=== PATIENT | male | born 1955 | race Caucasian/White ===

== ENCOUNTER → 2018-06-16 | Outpatient (CLI) | payer OTHER | END | disposition home or self-care (01) | LOC: RAH 11:12 | PROVIDERS: ATTEND Internal Medicine | DX: M16.0 Bilateral primary osteoarthritis of hip (principal) | CPT/HCPCS: 73501 ==

== ENCOUNTER → 2018-07-13 | Outpatient (CLI) | payer OTHER ==
[~2018-07-13] MED LIST: ATOR40TA71 PO; CEPH500T PO; FISH1CAP49 PO; FURO20TA6 PO; HYDR25TA PO; LEVO200T5 PO; LEVO50TA4 PO; LORA10TA7 PO; MELO15TA12 PO; METF-444 PO; METO100T14 PO; MUPI22OI2 TP; RIVA20TA PO; TRIAMCINOLONE TP; VIT D3 PO
== END | disposition home or self-care (01) ==
LOC: SHCH 11:11
PROVIDERS: ATTEND Internal Medicine Cardiovascular Disease
DX: I34.0 Nonrheumatic mitral (valve) insufficiency (principal); I48.2 Chronic atrial fibrillation
CPT/HCPCS: 71045; 93306

== ENCOUNTER 2018-08-04 05:46 | Observation (INO) | payer OTHER ==
[2018-07-31 14:58] VITALS: BP 147/86
[2018-07-31 15:21] LABS: BASOPHILS % (AUTO) 0.4 % (0.0-5.0); EOSINOPHILS % (AUTO) 2.9 % (0.0-8.0); HEMATOCRIT 42.8 % (42-54); LYMPHOCYTES % (AUTO) 36.4 % (21.0-51.0); MEAN CORPUSCULAR HEMOGLOBIN 32.8 pg (27.0-33.0); MEAN CORPUSCULAR HGB CONC 33.3 g/dL (32.0-36.0); MEAN CORPUSCULAR VOLUME 98.3 fL (79-99); MONOCYTES % (AUTO) 10.9 % (3.0-13.0); NEUTROPHILS % (AUTO) 49.4 % (40.0-77.0); NUCLEATED RED BLOOD CELLS 0.1 % (0.0-0.19); PLATELET COUNT (AUTO) 219 K/uL (130-400); RED BLOOD CELL COUNT(AUTO) 4.35 MIL/uL (4.50-6.20); RED CELL DISTRIBUTION WIDTH 14.1 % (11.0-15.5); WHITE BLOOD COUNT (AUTO) 7.1 K/uL (4.8-10.8)
[2018-07-31 15:33] LABS: CREATININE 0.9 mg/dL (0.5-1.5)
[2018-07-31 15:36] LABS: INR 1.28 (0.85-1.15); PARTIAL THROMBOPLASTIN TIME 36.2 SEC (26.3-35.5); PROTHROMBIN TIME 13.4 SEC (9.6-11.6)
--- NOTE | 2018-07-31 15:50 | NUR ---
NOTE PT HAS A CYST TO LEFT FOOT, OPEN BUT IS NOT DRAINING AT THIS TIME, SLIGHTLY RED AROUND CYST. PT WENT TO SEE PRIMARY MD YESTERDAY BECAUSE HE WAS HAVING DISCOMFORT, HE WAS PRESCRIBED ABXS AND TOPICAL CREAM TO APPLY. NOTIFIED ADRIAN MULLIGAN, ORDERS TO DRAW CBC WITH ENMANUEL DIFF MORNING OF PROCURE AND WILL BE REEVALUATED MORNING OF PROCEDURE.
--- NOTE | 2018-08-03 12:06 | NUR ---
ABNORMAL LABS REPORTED ABNORMAL LABS TO BECKY ANTON . ELEVATED PT/PTT/INR . ORDERS TO REDRAW MORNING OF PROCEDURE.
[2018-08-04] VITALS (17 sets, daily range): BP systolic 110–148; BP diastolic 72–100
[~2018-08-04] VITALS: Ht 177.8 cm; Wt 151.0 kg
[2018-08-04] MEDS ORDERED: SODIUM CHLORIDE 0.9% 1000ML 1,000 ML IV ONE (06:10)
[2018-08-04 06:20] LABS: HEMATOCRIT 39.7 % (42-54); MEAN CORPUSCULAR HEMOGLOBIN 33.1 pg (27.0-33.0); MEAN CORPUSCULAR HGB CONC 33.7 g/dL (32.0-36.0); MEAN CORPUSCULAR VOLUME 98.1 fL (79-99); NUCLEATED RED BLOOD CELLS 0.1 % (0.0-0.19); PLATELET COUNT (AUTO) 202 K/uL (130-400); RED BLOOD CELL COUNT(AUTO) 4.04 MIL/uL (4.50-6.20); RED CELL DISTRIBUTION WIDTH 14.2 % (11.0-15.5); WHITE BLOOD COUNT (AUTO) 6.1 K/uL (4.8-10.8)
[2018-08-04 06:34] LABS: INR 1.09 (0.85-1.15); PARTIAL THROMBOPLASTIN TIME 28.9 SEC (26.3-35.5); PROTHROMBIN TIME 11.4 SEC (9.6-11.6)
[2018-08-04] MEDS ORDERED: VANCOMYCIN 1GM+NS 250ML 500 ML IV ONE ×2 (07:20→23:23)
[2018-08-04] MEDS ORDERED: LIDOCAINE HCL 1% MDV 50ML VIAL ONE (07:20)
[2018-08-04] MEDS ORDERED: BUPIVACAINE/PF 0.25% 50ML VIAL IJ ONE (07:20)
[2018-08-04 07:23] LABS: EOSINOPHILS % (MANUAL) 1 % (1-6); LYMPHOCYTES % (MANUAL) 27 % (22-44); MAN.DIFF COMMENT-IMPRESSION MANUAL DIFFERENTIAL; MONOCYTES % (MANUAL) 7 % (2-9); PROMYELOCYTES % 1 (0-0); SEGMENTED NEUTROPHILS % 64 % (40-70)
[2018-08-04 07:25] LABS: PLATELET MORPHOLOGY COMMENT GIANT PLTS PRESENT
[2018-08-04] MEDS ORDERED: IODIXANOL 320 MG/ML 100 ML VIAL ONE (07:56)
[2018-08-04] MEDS ORDERED: DEXTROSE 50%-WATER 50 ML DISP.SYRIN IV PRN (08:30)
[2018-08-04] MEDS ORDERED: TRIAMCINOLONE ACETONIDE TP SCH (08:30)
[2018-08-04] MEDS ORDERED: ONDANSETRON HCL 4 MG/2 ML VIAL IV PRN (08:30)
[2018-08-04] MEDS ORDERED: ACETAMINOPHEN 325 MG TAB PO PRN ×2 (08:30)
[2018-08-04] MEDS: VIT D3 2000 UNIT PO SCH (09:00)
[2018-08-04] MEDS: HYDROCHLOROTHIAZIDE 25 MG TABLET PO SCH (09:00)
[2018-08-04] MEDS: LORATADINE 10 MG TABLET PO SCH (09:00)
[2018-08-04] MEDS: MELOXICAM 7.5 MG TABLET PO SCH (09:00)
[2018-08-04] MEDS: FUROSEMIDE 20 MG TABLET PO SCH (09:00)
--- NOTE | 2018-08-04 09:00 | NUR ---
PT ARRIVED TO DAY PT, STABLE NO DISTRESS STATES NO PAIN TO INCISION SITE. DRESSING TO LUE IS HAS SMALL QUARTER SIZE AMOUNT OF OOZING TO NON- ADHESIVE PAD NO HEMATOMA, PRESSURE DRESSING IS D/I.
[2018-08-04] MEDS ORDERED: COMPOUND IV REFRIGERATED 1 EACH IVSOLN MISC PRN (14:30)
[2018-08-04] MEDS: VANCOMYCIN 1.75 GM in SODIUM CHLORIDE 0.9% 250 ML IV SCH ×2 (15:50→23:00)
[2018-08-04] MEDS ORDERED: VANCOMYCIN 1GM+NS 250ML 250 ML IV SCH (16:00)
[2018-08-04] MEDS: METFORMIN HCL 500 MG TABLET PO SCH (17:00)
--- NOTE | 2018-08-04 19:00 | NUR ---
REPORT GIVEN TO STACY COWAN FOURTH FLOOR. PT IS STABLE, NO C/O PAIN TO POST-OP SITE TO LUE. PRESSURE DRESSING INTACT, NO HEMATOMA OR ACTIVE BLEEDING. PT TRANSFERRED IN A WHEELCHAIR WITH PERSONAL BELONGINGS, CANE, MEDICATIONS, WITH AT BEDSIDE.
--- NOTE | 2018-08-04 19:10 | NUR ---
Pt arrived by wheelchair. Bedside report received by CAMRYN Calvin. Pt receiving Vanc and IVF at this moment. pt denies pain at this time. Carolineto is on hold. Ice applied to insertion site. pt aware of plan of care. will continue to monitor.
[2018-08-04] MEDS: MUPIROCIN OINTMENT 22 GM TUBE TP SCH (21:00)
[2018-08-04] MEDS ORDERED: ATORVASTATIN CALCIUM 40 MG TABLET PO SCH (21:00)
[2018-08-04] MEDS: CEPHALEXIN 500 MG CAPSULE PO SCH (21:00)
[2018-08-04] MEDS ORDERED: FISH OIL 1000 MG/CAP PO SCH (21:00)
[2018-08-04] MEDS: INSULIN HUMULIN R 100 UNIT/ML 3ML SQ SCH (21:00)
[2018-08-04] MEDS: METOPROLOL TARTRATE 50 MG TAB PO SCH (21:40)
[2018-08-05] VITALS: BP 142/88
[2018-08-05 04:00] VITALS: BP 140/87
[2018-08-05] MEDS ORDERED: PHARMACY COMMUNICATION MISC SCH (06:45)
[2018-08-05] MEDS: MUPIROCIN OINTMENT 22 GM TUBE TP SCH (07:05)
--- NOTE | 2018-08-05 07:10 | NUR ---
ASSESSMENT PT IS AAOX4 DENIES CP DENIES SOB DENIES NV NOTED LEFT UPPER CHEST DRESSING CLEAN DRY AND INTACT, LEFT ARM SLING IN PLACE, NO COMPLAINTS AT THIS TIME. CALL LIGHT WITHIN REACH.
[2018-08-05] MEDS: INSULIN HUMULIN R 100 UNIT/ML 3ML SQ SCH (07:15)
[2018-08-05 07:30] VITALS: BP 156/93
[2018-08-05] MEDS ORDERED: LEVOTHYROXINE 50 MCG TABLET PO SCH (07:30)
[2018-08-05] MEDS ORDERED: LEVOTHYROXINE 100 MCG TABLET PO SCH (07:30)
[2018-08-05] MEDS: HYDROCHLOROTHIAZIDE 25 MG TABLET PO SCH (08:08)
[2018-08-05] MEDS: CEPHALEXIN 500 MG CAPSULE PO SCH (08:08)
[2018-08-05] MEDS: METFORMIN HCL 500 MG TABLET PO SCH (08:08)
[2018-08-05] MEDS: MELOXICAM 7.5 MG TABLET PO SCH (08:08)
[2018-08-05] MEDS: FUROSEMIDE 20 MG TABLET PO SCH (08:08)
[2018-08-05] MEDS: METOPROLOL TARTRATE 50 MG TAB PO SCH (08:08)
[2018-08-05] MEDS: LORATADINE 10 MG TABLET PO SCH (08:09)
[2018-08-05] MEDS: VIT D3 2000 UNIT PO SCH (08:10)
--- NOTE | 2018-08-05 09:45 | NUR ---
MD ROUNDS DR HAMMER AND DR Terrie PRATHER [facility]
--- NOTE | 2018-08-05 10:10 | NUR ---
DISCHARGE PATIENT AND FAMILY VERBALIZE DC INSTRUCTIONS UNDERSTANDING AGREE TO TAKE MEDICATIONS ORDERED. ALL QUESTIONS ANSWERED. TELE PACK REMOVED, PATIENT HAD NO IV. ALL BELONGINGS TAKEN HOME. DOWN VIA WC WITH FAMILY AND NURSE AIDE.
== END 2018-08-05 10:23 | disposition home or self-care (01) ==
LOC: DAH 05:46 → DAHIP 05:47 → 4CH 20:19
PROVIDERS: ADMIT Internal Medicine; ATTEND Internal Medicine
DX: I48.2 Chronic atrial fibrillation (principal); E11.9 Type 2 diabetes mellitus without complications; I49.5 Sick sinus syndrome; E66.9 Obesity, unspecified; G47.30 Sleep apnea, unspecified; I11.9 Hypertensive heart disease without heart failure; Z95.0 Presence of cardiac pacemaker; Z79.899 Other long term (current) drug therapy; Z82.49 Family history of ischemic heart disease and other diseases of the circulatory system; Z80.8 Family history of malignant neoplasm of other organs or systems
CPT/HCPCS: 33207; 36415 ×2; 71046; 80048; 82948 ×5; 85025 ×2; 85610 ×2; 85730 ×2; 93005; 96365; 96366 ×2; A4606; C1786; C1898; G0378 ×29; J3370 ×4; J3490 ×2; J7030 ×3; Q9967

== ENCOUNTER → 2019-11-10 | Outpatient (CLI) | payer MEDICARE, OTHER ==
[~2019-11-10] MED LIST changes: -CEPH500T PO; +HYDR-4457 PO; -MELO15TA12 PO
== END | disposition home or self-care (01) ==
LOC: OIH 14:12
PROVIDERS: ATTEND Internal Medicine Cardiovascular Disease
DX: J81.1 Chronic pulmonary edema (principal); I51.7 Cardiomegaly; R91.1 Solitary pulmonary nodule; R91.8 Other nonspecific abnormal finding of lung field; Z95.0 Presence of cardiac pacemaker
CPT/HCPCS: 71046

== ENCOUNTER 2019-12-16 07:07 | Observation (INO) | payer MEDICARE, OTHER ==
[~2019-12-16] VITALS: Ht 177.8 cm; Wt 150.6 kg
[2019-12-16] VITALS (11 sets, daily range): BP systolic 123–156; BP diastolic 69–94
[~2019-12-16 07:07] MED LIST changes: -ATOR40TA71 PO; +CALC-1038 PO; +FISH OIL PO; -FISH1CAP49 PO; -HYDR-4457 PO; +LEVO125T95 PO; -LEVO200T5 PO; -LEVO50TA4 PO; -LORA10TA7 PO; -MUPI22OI2 TP; +POTA-79 PO; +TAMS-1 PO; -TRIAMCINOLONE TP; -VIT D3 PO
--- NOTE | 2019-12-16 07:20 | NUR ---
preop pt arrived ambulatory in no distress. pt oriented to room, call light with in reach, and pt connected to library monitor. pt has slight redness to rt lower leg and dry skin to legs and arms. pt also has dark scab like skin to left leg that he reports it has been there for yeARS. WILL CONTINUE TO MONITOR PT
[2019-12-16 07:31] LABS: BASOPHILS % (AUTO) 0.6 % (0.0-5.0); EOSINOPHILS % (AUTO) 3.3 % (0.0-8.0); HEMATOCRIT 40.2 % (42-54); LYMPHOCYTES % (AUTO) 28.2 % (21.0-51.0); MEAN CORPUSCULAR HGB CONC 32.8 g/dL (32.0-36.0); MEAN CORPUSCULAR VOLUME 97.3 fL (79-99); MONOCYTES % (AUTO) 12.2 % (3.0-13.0); NEUTROPHILS % (AUTO) 55.4 % (40.0-77.0); PLATELET COUNT (AUTO) 167 K/uL (130-400); RED BLOOD CELL COUNT(AUTO) 4.13 MIL/uL (4.50-6.20); RED CELL DISTRIBUTION WIDTH 14.6 % (11.0-15.5); WHITE BLOOD COUNT (AUTO) 6.7 K/uL (4.8-10.8)
[2019-12-16 07:39] LABS: CREATININE 0.8 mg/dL (0.5-1.5); POTASSIUM 3.7 mmol/L (3.5-5.1)
[2019-12-16 07:41] LABS: INR 1.08 (0.85-1.15); PARTIAL THROMBOPLASTIN TIME 27.4 SEC (26.3-35.5); PROTHROMBIN TIME 11.6 SEC (9.6-11.6)
[2019-12-16] MEDS ORDERED: SODIUM CHLORIDE 0.9% 1000ML 1,000 ML IV ONE (08:22)
[2019-12-16] MEDS ORDERED: SODIUM CHLORIDE 0.9% 1000ML 1,000 ML IV SCH (08:45)
[2019-12-16] MEDS ORDERED: VANCOMYCIN 1GM+NS 250ML 250 ML IV SCH (08:45)
--- NOTE | 2019-12-16 11:15 | NUR ---
re assess pt in no distress laying in bed. pt informed procedure delayed due to urgent procedures being done by dr shankar at this time. pt voiced understanding. will continue to monitor pt
--- NOTE | 2019-12-16 12:20 | NUR ---
report called prem abad rn labor employment associaterd lab technician and informed pt arrived at 830 am and has not been taken to procedure due to emergency cases. director will follow up with labor employment associate
[2019-12-16] MEDS ORDERED: IOHEXOL-350 50ML VIAL IV ONE (13:30)
[2019-12-16] MEDS ORDERED: MEPERIDINE-PF 25 MG/ML SYG ONE ×2 (13:30→14:24)
[2019-12-16] MEDS ORDERED: LIDOCAINE HCL 1% MDV 50ML VIAL ONE (13:30)
[2019-12-16] MEDS ORDERED: BUPIVACAINE/PF 0.25% 30ML VIAL IJ ONE (13:30)
[2019-12-16] MEDS ORDERED: CEFAZOLIN SODIUM 1 GM VIAL ONE (13:30)
[2019-12-16] MEDS ORDERED: MIDAZOLAM HCL 1 MG/ML 2ML VIAL ONE ×2 (13:30→14:25)
--- NOTE | 2019-12-16 13:35 | NUR ---
MATH INSTRUCTOR PT TAKEN TO MATH INSTRUCTOR VIA BED IN NO DISTRESS
[2019-12-16] MEDS ORDERED: VANCOMYCIN 1GM+NS 250ML 250 ML IV ONE ×2 (13:59→14:01)
[2019-12-16] MEDS ORDERED: ACETAMINOPHEN-CODEINE 300/30MG TAB PO PRN (16:00)
--- NOTE | 2019-12-16 16:06 | NUR ---
RECEIVED FROM ASSOCIATE ENTERTAINMENT EDITOR VIA BED ACCOMPANIED BY Marco PETERSON, RN AND Natty BUSTOS, RN. PT. AAOX3, RESP.'S EVEN AND UNLABORED. DENIES ANY C/O SOB, DENIES ANY CURRENT PAIN. LEFT UPPER CHEST PRESSURE DRSG IN PLACE, D/I. LEFT ARM WITH SLING IN PLACE. REMINDED OF LEFT ARM RESTRICTIONS, VERBALIZED UNDERSTANDING. CALL LIGHT WITHIN REACH, VERBALIZED ABILITY TO USE. BED LOW, SIDE RAILS UP X3.
--- NOTE | 2019-12-16 18:00 | NUR ---
SITTING UP IN BED WATCHING TELEVISION W/O C/O. CALL LIGHT WITHIN REACH.
--- NOTE | 2019-12-16 18:30 | NUR ---
NOTIFIED MILAGROS WALL OF ADMISSION, VERBALIZED UNDERSTANDING. WILL BE IN TO SEE PT.
[2019-12-16] MEDS ORDERED: METFORMIN HCL 500 MG TABLET PO SCH (21:00)
[2019-12-16] MEDS ORDERED: LEVOTHYROXINE 125 MCG TABLET PO SCH (21:00)
[2019-12-16] MEDS ORDERED: TAMSULOSIN HCL 0.4 MG CAP.ER.24H PO SCH (21:00)
[2019-12-16] MEDS: METOPROLOL TARTRATE 50 MG TAB PO SCH (21:21)
[2019-12-16] MEDS: FISH OIL 1000 MG/CAP PO SCH (21:21)
[2019-12-17] MEDS ORDERED: ONDANSETRON HCL 4 MG/2 ML VIAL IVP PRN (01:00)
[2019-12-17] MEDS ORDERED: MORPHINE SULFATE 2 MG/ML 1ML SYG IVP PRN (01:15)
[2019-12-17 04:00] VITALS: BP 137/89
[2019-12-17] MEDS ORDERED: LEVOTHYROXINE 125 MCG TABLET PO SCH (06:30)
[2019-12-17] MEDS: FISH OIL 1000 MG/CAP PO SCH (08:39)
[2019-12-17] MEDS: METOPROLOL TARTRATE 50 MG TAB PO SCH (08:39)
[2019-12-17 08:45] VITALS: BP 125/90
[2019-12-17] MEDS ORDERED: POTASSIUM CHLORIDE 20 MEQ ERTAB PO SCH (09:00)
[2019-12-17] MEDS ORDERED: HYDROCHLOROTHIAZIDE 25 MG TABLET PO SCH (09:00)
[2019-12-17] MEDS ORDERED: PANTOPRAZOLE 40 MG/VIAL IVP SCH (09:00)
[2019-12-17] MEDS ORDERED: CALCIUM CARBONATE 500 MG TABLET PO SCH (09:00)
[2019-12-17] MEDS ORDERED: FUROSEMIDE 20 MG TABLET PO SCH (09:00)
[2019-12-17 12:14] VITALS: BP 138/88
--- NOTE | 2019-12-17 13:00 | NUR ---
Patient discharged at this time. Discharged paperwork was understood and signed by patient. IV was D/c prior to D/C. Patient in stable condition with no c/o of cp, n/v, or SOB.
== END 2019-12-17 13:00 | disposition home or self-care (01) ==
LOC: CLH 07:07 → DAH 07:07 → DAHIP 07:08 → CLH 07:08 → 2AH 16:25 → 4AH 16:30
PROVIDERS: ADMIT Internal Medicine; ATTEND Internal Medicine
DX: T82.110A Breakdown (mechanical) of cardiac electrode, initial encounter (principal); I48.21 Permanent atrial fibrillation; E66.01 Morbid (severe) obesity due to excess calories; E03.9 Hypothyroidism, unspecified; E78.00 Pure hypercholesterolemia, unspecified; I10 Essential (primary) hypertension; M16.11 Unilateral primary osteoarthritis, right hip; I25.2 Old myocardial infarction; N40.0 Benign prostatic hyperplasia without lower urinary tract symptoms; Z96.641 Presence of right artificial hip joint; Z88.0 Allergy status to penicillin; Z90.49 Acquired absence of other specified parts of digestive tract; Y71.2 Prosthetic and other implants, materials and accessory cardiovascular devices associated with adverse incidents; Y92.89 Other specified places as the place of occurrence of the external cause
CPT/HCPCS: 33216; 36415; 71045; 80048; 82948 ×4; 85025; 85610; 85730; 96374; A4215; A4216; A4221; A4222; A4223 ×3; A4606; A4663; C1898; C9113; G0378 ×18; J2175 ×2; J2250 ×2; J3370 ×2; J3490 ×2; J7030 ×2; 99156; 99157; J0690; Q9967

== ENCOUNTER 2020-07-11 07:22 | Day surgery (SDC) | payer OTHER ==
[~2020-07-11] VITALS: Ht 177.8 cm; Wt 152.0 kg
[2020-07-11] VITALS (7 sets, daily range): BP systolic 120–165; BP diastolic 66–85
[~2020-07-11 07:22] MED LIST changes: +SODIUM CHLORIDE 0.9% 1000ML 1,000 ML IV ONE
[2020-07-11] MEDS ORDERED: PROPOFOL 10 MG/ML 20ML VIAL IV ONE (09:32)
== END 2020-07-11 10:20 | disposition home or self-care (01) ==
LOC: DAH 07:22 → ENDO 07:22
PROVIDERS: ATTEND Internal Medicine Gastroenterology
DX: Z12.11 Encounter for screening for malignant neoplasm of colon (principal); Z20.828 Contact with and (suspected) exposure to other viral communicable diseases; D12.2 Benign neoplasm of ascending colon; D12.3 Benign neoplasm of transverse colon; K57.30 Diverticulosis of large intestine without perforation or abscess without bleeding; I10 Essential (primary) hypertension; E11.9 Type 2 diabetes mellitus without complications; I48.91 Unspecified atrial fibrillation; E78.5 Hyperlipidemia, unspecified; E66.01 Morbid (severe) obesity due to excess calories; E03.9 Hypothyroidism, unspecified; Z68.42 Body mass index [BMI] 45.0-49.9, adult; Z86.010 Personal history of colon polyps; Z95.0 Presence of cardiac pacemaker; Z88.0 Allergy status to penicillin; Z79.890 Hormone replacement therapy; Z79.01 Long term (current) use of anticoagulants; Z79.899 Other long term (current) drug therapy; Z79.84 Long term (current) use of oral hypoglycemic drugs; Z80.0 Family history of malignant neoplasm of digestive organs; Z72.89 Other problems related to lifestyle
CPT/HCPCS: 45380; 45385; 82948 ×2; 93005; A4215 ×2; A4221; A4222; A4223; A4606; A4620; A4657; A4663; C9803; J2704; J7030; U0003

== ENCOUNTER → 2022-02-22 | Outpatient (CLI) | payer MEDICARE ==
[~2022-02-22] VITALS: Ht 177.8 cm; Wt 129.6 kg
[~2022-02-22] MED LIST changes: +0.9%NACL 1000ML 1,000 ML IV ONE; +ATOR40TA69 PO; +BUPIVACAINE/PF 0.25% 30ML VIAL IJ ONE; +CEFAZOLIN SODIUM 1 GM VIAL ONE; +CEFAZOLIN SODIUM 3 GM in DEXTROSE 5%-WATER 100 ML IVP ONE; +CLINDAMYCIN IVPB 900MG/50ML 50 ML IV ONE; +CYCL-309 PO; +CYCL5TAB PO; +DOCU-116 PO; +FAMOTIDINE 20MG VIAL IV ONE; +FENTANYL CITRATE PF 50 MCG/1 ML 2ML VIAL ONE; +GABA-529 PO; +GABA100C PO; +GLYCOPYRROLATE 1 MG/5 ML SYRINGE ONE; +HYDR-4060 PO; +LEVO125C4 PO; +LIDOCAINE PF 100MG/5ML (2%) SYRINGE 5ML ONE; +LORA10TA7 PO; +MELO-108 PO; +MIDAZOLAM HCL 1 MG/ML 2ML VIAL ONE; +MULT-1258 PO; +NEOSTIGMINE 5MG/5ML SYR IV ONE; +OMEG-148 PO; +PROPOFOL 10 MG/ML 20ML VIAL IV ONE; +RACEPINEPHRINE HCL 2.25% 0.5 ML NEB SOLN ONE; +ROCURONIUM 10MG/1ML SYR 10 MG/ML ML ONE; +ROPIVACAINE 0.5% 5MG/ML 30ML IJ ONE; -SODIUM CHLORIDE 0.9% 1000ML 1,000 ML IV ONE; +SUCCINYLCHOLINE 200MG/10ML SYR ONE; +TRANEXAMIC ACID 1000MG/10ML ONE; +VERA180T60 PO; +VITAMIN D3 PO
[2022-02-22 11:10] LABS: APPEARANCE,URINE CLEAR (CLEAR); BILIRUBIN,URINE NEGATIVE (NEGATIVE); COLOR,URINE YELLOW (YELLOW); GLUCOSE, URINE (UA) NEGATIVE (NEGATIVE); KETONES,URINE 5 mg/dL (NEGATIVE); LEUKOCYTE ESTERASE ,URINE NEGATIVE (NEGATIVE); NITRATE,URINE NEGATIVE (NEGATIVE); OCCULT BLOOD,URINE NEGATIVE (NEGATIVE); PROTEIN,URINE NEGATIVE (NEGATIVE); UROBILINOGEN,URINE 0.2 mg/dL (0.2-1.0)
[2022-02-22 11:16] LABS: ALBUMIN 3.7 g/dL (3.5-5.0)
[2022-02-22 11:36] LABS: CRP QUANTITATIVE < 2.00 mg/L (0.00-9.0)
[2022-02-22 11:42] LABS: INR 1.15 (0.85-1.15); PROTHROMBIN TIME 12.4 SEC (9.6-11.6)
[2022-02-22 11:43] LABS: PARTIAL THROMBOPLASTIN TIME 32.2 SEC (26.3-35.5)
[2022-02-22 11:47] LABS: RBC,URINE None Seen /HPF (0-1); WBC,URINE None Seen /HPF (0-1)
[2022-02-22 11:49] LABS: BACTERIA,URINE Rare /HPF (None Seen); SQUAMOUS EPITHELIAL CELL,UR 0-2 /HPF (0-2)
[2022-02-22 13:24] VITALS: BP 151/87
[2022-02-25] VITALS (14 sets, daily range): BP systolic 115–156; BP diastolic 56–79
== END | disposition home or self-care (01) ==
LOC: EDSTATUS 08:00 → DAH 10:00 → UNDOADMOB 02-25 06:05 → DAHIP 02-25 06:05
PROVIDERS: ATTEND Student in an Organized Health Care Education/Training Program
DX: Z01.812 Encounter for preprocedural laboratory examination (principal); M16.12 Unilateral primary osteoarthritis, left hip; G89.29 Other chronic pain; M25.552 Pain in left hip; I48.20 Chronic atrial fibrillation, unspecified; Z79.01 Long term (current) use of anticoagulants; Z79.899 Other long term (current) drug therapy; Z20.822 Contact with and (suspected) exposure to COVID-19
CPT/HCPCS: 36415; 81001; 82040; 82948; 84134; 85610; 85730; 86140; 87088; 87426; 87641; 94640; J0690; J7060

== ENCOUNTER 2022-04-15 06:46 | Observation (INO) | payer MEDICARE ==
[2022-04-12 10:20] VITALS: BP 154/79
[2022-04-12 10:39] LABS: BASOPHILS % (AUTO) 0.9 % (0.0-5.0); EOSINOPHILS % (AUTO) 2.2 % (0.0-8.0); HEMATOCRIT 40.8 % (42-54); MEAN CORPUSCULAR HEMOGLOBIN 31.4 pg (27.0-33.0); MEAN CORPUSCULAR HGB CONC 33.8 g/dL (32.0-36.0); MEAN CORPUSCULAR VOLUME 92.7 fL (79-99); NEUTROPHILS % (AUTO) 40.5 % (40.0-77.0); PLATELET COUNT (AUTO) 182 K/uL (130-400); RED CELL DISTRIBUTION WIDTH 13.7 % (11.0-15.5); WHITE BLOOD COUNT (AUTO) 5.5 K/uL (4.8-10.8)
[2022-04-12 10:56] LABS: APPEARANCE,URINE CLEAR (CLEAR); BILIRUBIN,URINE NEGATIVE (NEGATIVE); COLOR,URINE LIGHT-YELLOW (YELLOW); GLUCOSE, URINE (UA) NEGATIVE (NEGATIVE); KETONES,URINE NEGATIVE (NEGATIVE); LEUKOCYTE ESTERASE ,URINE NEGATIVE Leu/uL (NEGATIVE); NITRATE,URINE NEGATIVE (NEGATIVE); OCCULT BLOOD,URINE NEGATIVE (NEGATIVE); PH,URINE 6.5 (5.0-8.0); PROTEIN,URINE NEGATIVE (NEGATIVE); UROBILINOGEN,URINE 0.2 mg/dL (0.2-1.0)
[2022-04-12 10:58] LABS: ALBUMIN 3.7 g/dL (3.5-5.0); CREATININE 0.6 mg/dL (0.5-1.5); CRP QUANTITATIVE 2.2 mg/L (0.00-9.0); POTASSIUM 3.2 mmol/L (3.5-5.1)
[2022-04-12 10:59] LABS: INR 1.14 (0.85-1.15); PROTHROMBIN TIME 12.3 SEC (9.6-11.6)
[2022-04-12 11:00] LABS: PARTIAL THROMBOPLASTIN TIME 33.6 SEC (26.3-35.5)
[~2022-04-15] VITALS: Ht 175.3 cm; Wt 130.4 kg
[2022-04-15] VITALS (27 sets, daily range): BP systolic 135–169; BP diastolic 64–92
[~2022-04-15 06:46] MED LIST changes: -0.9%NACL 1000ML 1,000 ML IV ONE; -BUPIVACAINE/PF 0.25% 30ML VIAL IJ ONE; -CEFAZOLIN SODIUM 1 GM VIAL ONE; -CEFAZOLIN SODIUM 3 GM in DEXTROSE 5%-WATER 100 ML IVP ONE; -CLINDAMYCIN IVPB 900MG/50ML 50 ML IV ONE; -CYCL-309 PO; -CYCL5TAB PO; -DOCU-116 PO; -FAMOTIDINE 20MG VIAL IV ONE; -FENTANYL CITRATE PF 50 MCG/1 ML 2ML VIAL ONE; -GABA-529 PO; -GABA100C PO; -GLYCOPYRROLATE 1 MG/5 ML SYRINGE ONE; -HYDR-4060 PO; -LIDOCAINE PF 100MG/5ML (2%) SYRINGE 5ML ONE; -MIDAZOLAM HCL 1 MG/ML 2ML VIAL ONE; -NEOSTIGMINE 5MG/5ML SYR IV ONE; -PROPOFOL 10 MG/ML 20ML VIAL IV ONE; -RACEPINEPHRINE HCL 2.25% 0.5 ML NEB SOLN ONE; -ROCURONIUM 10MG/1ML SYR 10 MG/ML ML ONE; -ROPIVACAINE 0.5% 5MG/ML 30ML IJ ONE; -SUCCINYLCHOLINE 200MG/10ML SYR ONE; -TRANEXAMIC ACID 1000MG/10ML ONE
[2022-04-15] MEDS ORDERED: 0.9%NACL 1000ML 1,000 ML IV ONE (08:29)
[2022-04-15] MEDS ORDERED: CLINDAMYCIN IVPB 900MG/50ML 50 ML IV ONE ×2 (08:29→19:49)
[2022-04-15] MEDS ORDERED: LIDOCAINE PF 100MG/5ML (2%) SYRINGE 5ML ONE (10:20)
[2022-04-15] MEDS ORDERED: SUCCINYLCHOLINE CHLORIDE 20 MG/ML 10 ML VIAL ONE (10:20)
[2022-04-15] MEDS ORDERED: SUCCINYLCHOLINE 200MG/10ML SYR ONE (10:21)
[2022-04-15] MEDS ORDERED: DEXAMETHASONE SOD PHOSPHATE 10MG/ML 1ML VIAL ONE (10:22)
[2022-04-15] MEDS ORDERED: GLYCOPYRROLATE 1 MG/5 ML SYRINGE ONE (10:22)
[2022-04-15] MEDS ORDERED: MIDAZOLAM HCL 1 MG/ML 2ML VIAL ONE (10:22)
[2022-04-15] MEDS ORDERED: NEOSTIGMINE 5MG/5ML SYR IV ONE (10:22)
[2022-04-15] MEDS ORDERED: PROPOFOL 10 MG/ML 20ML VIAL IV ONE ×2 (10:22→10:49)
[2022-04-15] MEDS ORDERED: ONDANSETRON 4MG INJ ONE ×3 (10:22→15:11)
[2022-04-15] MEDS ORDERED: ROCURONIUM 10MG/1ML SYR 10 MG/ML ML ONE ×2 (10:23→10:56)
[2022-04-15] MEDS ORDERED: FENTANYL CITRATE PF 50 MCG/1 ML 2ML VIAL ONE ×2 (10:23→13:09)
[2022-04-15] MEDS ORDERED: ROPIVACAINE 0.5% 5MG/ML 30ML IJ ONE (10:26)
[2022-04-15] MEDS ORDERED: TRANEXAMIC ACID 1000MG/10ML ONE (11:34)
[2022-04-15] MEDS ORDERED: TRANEXAMIC ACID 1000MG/10ML IV ONE (14:02)
[2022-04-15] MEDS ORDERED: MEPERIDINE-PF 25 MG/ML SYG ONE (15:11)
[2022-04-15] MEDS ORDERED: KETOROLAC 15MG/ML VIAL (15MG/ML) ONE (15:11)
[2022-04-15] MEDS ORDERED: ONDANSETRON 4MG INJ IVP PRN (16:00)
[2022-04-15] MEDS ORDERED: FERROUS FUMARATE 324 MG TABLET PO PRN (16:00)
[2022-04-15] MEDS ORDERED: POTASSIUM CHLORIDE 10% ELIXIR 20 MEQ/15 ML UDCUP PO PRN (16:00)
[2022-04-15] MEDS ORDERED: LIDOCAINE HCL-MPF 1% 2ML VIAL IV PRN (16:00)
[2022-04-15] MEDS ORDERED: DiphenhydrAMINE HCL 50 MG/ML VIAL IVP PRN (16:00)
[2022-04-15] MEDS ORDERED: HYDROCODONE/ACETAMINOPHEN 5/325 MG TAB PO PRN (16:00)
[2022-04-15] MEDS ORDERED: POTASSIUM CHLORIDE 20MEQ/100ML 100 ML IV PRN (16:00)
[2022-04-15] MEDS: KETOROLAC 15MG/ML VIAL (15MG/ML) IV SCH ×2 (16:00→20:14)
[2022-04-15] MEDS ORDERED: CALCIUM CARB 500MG PO PRN (16:00)
[2022-04-15] MEDS ORDERED: CYCLOBENZAPRINE HCL 10 MG TABLET PO PRN (16:00)
[2022-04-15] MEDS ORDERED: 0.9%NACL 1000ML 1,000 ML IV SCH (16:00)
[2022-04-15] MEDS: INSULIN HUMULIN R 100 UNIT/ML 3ML SQ SCH ×2 (16:30→20:32)
[2022-04-15] MEDS ORDERED: MELOXICAM 7.5 MG TABLET PO PRN (19:30)
[2022-04-15] MEDS ORDERED: GABAPENTIN 100 MG CAPSULE ONE (19:40)
[2022-04-15] MEDS ORDERED: LORATADINE 10 MG TABLET ONE (19:41)
[2022-04-15] MEDS ORDERED: ATORVASTATIN 40 MG TABLET ONE (19:41)
[2022-04-15] MEDS: GABAPENTIN 100 MG CAPSULE PO SCH (20:12)
[2022-04-15] MEDS: FISH OIL 1000 MG/CAP PO SCH (20:12)
[2022-04-15] MEDS: KCL 20 MEQ ERTAB PO PRN ×2 (20:13→21:51)
[2022-04-15] MEDS: DOCUSATE SODIUM 100 MG CAP PO SCH (20:13)
[2022-04-15] MEDS: METOPROLOL TARTRATE 50 MG TAB PO SCH (20:13)
[2022-04-15] MEDS: CLINDAMYCIN IVPB 900MG/50ML 50 ML IV SCH (20:14)
[2022-04-15] MEDS: HOME MEDICATION 1 EACH PO SCH (20:15)
[2022-04-15] MEDS: KCL 20 MEQ ERTAB PO SCH (20:15)
[2022-04-15] MEDS ORDERED: LORATADINE 10 MG TABLET PO SCH (21:00)
[2022-04-15] MEDS ORDERED: ATORVASTATIN 40 MG TABLET PO SCH (21:00)
[2022-04-16] VITALS: BP 136/70
[2022-04-16] MEDS: CLINDAMYCIN IVPB 900MG/50ML 50 ML IV SCH (03:32)
[2022-04-16] MEDS: KETOROLAC 15MG/ML VIAL (15MG/ML) IV SCH (03:32)
[2022-04-16 04:00] VITALS: BP 131/75
[2022-04-16] MEDS ORDERED: LEVOTHYROXINE 125 MCG TABLET ONE (04:24)
[2022-04-16 04:54] LABS: HEMATOCRIT 29.4 % (42-54); MEAN CORPUSCULAR HEMOGLOBIN 31.6 pg (27.0-33.0); MEAN CORPUSCULAR HGB CONC 33.3 g/dL (32.0-36.0); MEAN CORPUSCULAR VOLUME 94.8 fL (79-99); RED BLOOD CELL COUNT(AUTO) 3.1 MIL/uL (4.50-6.20); RED CELL DISTRIBUTION WIDTH 13.7 % (11.0-15.5); WHITE BLOOD COUNT (AUTO) 10.9 K/uL (4.8-10.8)
[2022-04-16 05:09] LABS: CREATININE 0.7 mg/dL (0.5-1.5); POTASSIUM 3.9 mmol/L (3.5-5.1)
[2022-04-16] MEDS: INSULIN HUMULIN R 100 UNIT/ML 3ML SQ SCH ×3 (06:11→16:30)
[2022-04-16] MEDS: HYDROCODONE/ACETAMINOPHEN 5/325 MG TAB PO PRN ×3 (06:12→18:39)
[2022-04-16 07:30] VITALS: BP 126/78
[2022-04-16] MEDS ORDERED: LEVOTHYROXINE 125 MCG TABLET PO SCH (07:30)
[2022-04-16] MEDS ORDERED: METFORMIN HCL 500 MG TAB.SR.24H PO SCH (08:00)
[2022-04-16] MEDS: METOPROLOL TARTRATE 50 MG TAB PO SCH (08:12)
[2022-04-16] MEDS: GABAPENTIN 100 MG CAPSULE PO SCH ×2 (08:12→13:54)
[2022-04-16] MEDS: DOCUSATE SODIUM 100 MG CAP PO SCH (08:13)
[2022-04-16] MEDS: FISH OIL 1000 MG/CAP PO SCH (08:13)
[2022-04-16] MEDS: KCL 20 MEQ ERTAB PO SCH (08:13)
[2022-04-16] MEDS: HOME MEDICATION 1 EACH PO SCH (08:14)
[2022-04-16] MEDS ORDERED: ASPIRIN 325MG TAB PO SCH (09:00)
[2022-04-16] MEDS ORDERED: FUROSEMIDE 20 MG TABLET PO SCH (09:00)
[2022-04-16] MEDS ORDERED: HYDROCHLOROTHIAZIDE 25 MG TABLET PO SCH (09:00)
[2022-04-16] MEDS ORDERED: VERAPAMIL HCL 180 MG PO SCH (09:00)
[2022-04-16] MEDS ORDERED: MULTIVITAMIN WITH MINERALS TABLET PO SCH (09:00)
[2022-04-16] MEDS ORDERED: POLYETHYLENE GLYCOL 3350 17 GM POWD.PACK PO SCH (09:00)
[2022-04-16 11:30] VITALS: BP 132/78
[2022-04-16 16:00] VITALS: BP 128/71
[2022-04-16] MEDS ORDERED: HYDR-4060 PO ×4 (16:07→18:04)
[2022-04-16] MEDS ORDERED: GABA100C PO ×2 (16:07)
[2022-04-16] MEDS ORDERED: CYCL-309 PO ×2 (16:07)
[2022-04-16] MEDS ORDERED: DOCU-116 PO ×4 (16:07→18:04)
[2022-04-16] MEDS ORDERED: CYCL5TAB PO ×2 (18:04)
[2022-04-16] MEDS ORDERED: GABA-529 PO ×2 (18:04)
[2022-04-18] MEDS ORDERED: BISACODYL 10 MG SUPP.RECT RC PRN (16:00)
== END 2022-04-16 20:15 | disposition home health service (06) ==
LOC: DAH 06:46 → SUH 06:46 → INTOOBSV 06:47 → DAHIP 06:47 → SUH 06:47 → 4DH 16:40
PROVIDERS: ADMIT Student in an Organized Health Care Education/Training Program; ATTEND Student in an Organized Health Care Education/Training Program
DX: M16.12 Unilateral primary osteoarthritis, left hip (principal); Z20.822 Contact with and (suspected) exposure to COVID-19; M25.552 Pain in left hip; G89.29 Other chronic pain; D64.9 Anemia, unspecified; Z79.899 Other long term (current) drug therapy; Z98.890 Other specified postprocedural states
CPT/HCPCS: 82040; 80048 ×2; 85025; 85610; 85730; 87088; 84134; 86140; 87426; 81003; 36415 ×2; 93005; 87641; 27130; 96365; 96366 ×3; 96375; 76942; 64450; 82948 ×6; 73502; 73503; 97039 ×2; 96376; 85027; 97161; 97116 ×2; 97530 ×2; J7030 ×3; C1776; J3010 ×2; J3490 ×6; J0330 ×2; J1100; J2710; J2001; J2250; J2704 ×2; J2405 ×3; J2175; J2795; J1885 ×3; A4649 ×3; G0168; A4930; A6255; A5120; A4215; A4223; A4222; A4221; A4663; G0378 ×2; G0379

== ENCOUNTER → 2022-10-26 | Outpatient (CLI) | payer OTHER ==
[~2022-10-26] MED LIST changes: -CALC-1038 PO; +CYCL5TAB PO; +DOCU-116 PO; -FISH OIL PO; +GABA-529 PO; +HYDR-4060 PO; -LEVO125T95 PO; -MELO-108 PO; -TAMS-1 PO
== END | disposition home or self-care (01) ==
LOC: OIH 14:37
PROVIDERS: ATTEND Internal Medicine Cardiovascular Disease
DX: Z13.6 Encounter for screening for cardiovascular disorders (principal); R93.1 Abnormal findings on diagnostic imaging of heart and coronary circulation; J98.4 Other disorders of lung
CPT/HCPCS: 75571

== ENCOUNTER → 2022-11-06 | Outpatient (CLI) | payer MEDICARE | END | disposition home or self-care (01) | LOC: SHCH 13:17 | PROVIDERS: ATTEND Internal Medicine Cardiovascular Disease | DX: I51.7 Cardiomegaly (principal); R01.1 Cardiac murmur, unspecified | CPT/HCPCS: 93306 ==

== ENCOUNTER → 2022-11-25 | Outpatient (CLI) | payer MEDICARE ==
[~2022-11-25] MED LIST changes: +REGADENOSON 0.4 MG/5 ML PF SYG IVP ONE
== END | disposition home or self-care (01) ==
LOC: SHCH 09:16
PROVIDERS: ATTEND Internal Medicine Cardiovascular Disease
DX: I25.119 Atherosclerotic heart disease of native coronary artery with unspecified angina pectoris (principal); Z95.0 Presence of cardiac pacemaker
CPT/HCPCS: 78452; 96374; 93017; J2785; A9500 ×2

== ENCOUNTER 2023-06-11 15:26 | Emergency (ER) | payer OTHER, MEDICARE ==
[~2023-06-11] VITALS: Ht 177.8 cm; Wt 129.3 kg
[~2023-06-11 15:26] MED LIST changes: +POTA-364 PO; -POTA-79 PO; -REGADENOSON 0.4 MG/5 ML PF SYG IVP ONE
[2023-06-11 19:02] VITALS: BP 126/70; PULSE 64; RESP 19; O2SAT 98
== END 2023-06-11 20:24 | disposition home or self-care (01) ==
LOC: EDH 15:26
DX: S20.212A Contusion of left front wall of thorax, initial encounter (principal); S90.112A Contusion of left great toe without damage to nail, initial encounter; I10 Essential (primary) hypertension; E11.9 Type 2 diabetes mellitus without complications; E78.00 Pure hypercholesterolemia, unspecified; I48.91 Unspecified atrial fibrillation; Z79.84 Long term (current) use of oral hypoglycemic drugs; Z79.899 Other long term (current) drug therapy; Z90.49 Acquired absence of other specified parts of digestive tract; Z98.890 Other specified postprocedural states; X58.XXXA Exposure to other specified factors, initial encounter; Y93.89 Activity, other specified; Y92.89 Other specified places as the place of occurrence of the external cause; Y99.8 Other external cause status
CPT/HCPCS: 71101; 73630

== ENCOUNTER 2024-05-16 10:12 | Emergency (ER) | payer OTHER, MEDICARE ==
[~2024-05-16] VITALS: Ht 167.6 cm; Wt 95.3 kg
[2024-05-16 10:16] VITALS: BP 124/74; PULSE 66; RESP 18; TEMP 98.4; O2SAT 99
[2024-05-16] MEDS: morPHINE 2 MG SYG IVP ONE (11:03)
[2024-05-16] MEDS: ondanSETRON 4MG INJ IVP ONE (11:03)
[2024-05-16] MEDS: CYCLOBENZAPRINE HCL 10 MG TABLET PO ONE (11:03)
[2024-05-16] MEDS: dexaMETHasone SOD PHOSPHATE 4 MG/ML 1ML VIAL IVP ONE (11:03)
[2024-05-16] MEDS: ketOROlac 30MG VIAL (30MG/ML) IVP ONE (11:03)
[2024-05-16] MEDS ORDERED: CYCL-309 PO (11:40)
[2024-05-16] MEDS ORDERED: IBUP-2077 PO (11:40)
== END 2024-05-16 12:15 | disposition home or self-care (01) ==
LOC: EDH 10:12
DX: S29.012A Strain of muscle and tendon of back wall of thorax, initial encounter (principal); S39.012A Strain of muscle, fascia and tendon of lower back, initial encounter; M47.898 Other spondylosis, sacral and sacrococcygeal region; E11.9 Type 2 diabetes mellitus without complications; E78.00 Pure hypercholesterolemia, unspecified; I10 Essential (primary) hypertension; Z79.01 Long term (current) use of anticoagulants; Z79.84 Long term (current) use of oral hypoglycemic drugs; Z79.899 Other long term (current) drug therapy; Z88.0 Allergy status to penicillin; Z95.810 Presence of automatic (implantable) cardiac defibrillator; Z96.643 Presence of artificial hip joint, bilateral; W18.39XA Other fall on same level, initial encounter; Y93.89 Activity, other specified; Y92.89 Other specified places as the place of occurrence of the external cause; Y99.8 Other external cause status
CPT/HCPCS: 99284; 96374; 96375; 72100; 72070; J1100; J2270; J2405; J1885

== ENCOUNTER 2024-09-23 14:11 | Emergency (ER) | payer OTHER, MEDICARE ==
[~2024-09-23] VITALS: Ht 175.3 cm; Wt 127.0 kg
[~2024-09-23 14:11] MED LIST changes: +CYCL-309 PO; -CYCL5TAB PO; +CYCL5TAB3 PO; +IBUP-2077 PO
--- NOTE | 2024-09-23 14:49 | NUR ---
PT CAME BACK FROM CT
--- NOTE | 2024-09-23 15:11 | HMCIMG ---
CT HEAD/BRAIN W/O CONTRAST HISTORY: Trauma COMPARISON: None TECHNIQUE: Multiple sequential axial images of the head were obtained from the base of the skull through vertex. Patient was not given contrast through intravenous route. FINDINGS: The ventricles and extraventricular CSF spaces are dilated consistent with cerebral atrophy. Nonspecific white matter changes seen. Left periorbital soft tissue swelling/hematoma is seen. There is no midline shift, mass effect or herniation. No acute intracranial bleed is seen. Visualized portion of the paranasal sinuses are grossly within normal limits. IMPRESSION: 1. No acute intracranial bleed is seen. 2. Atrophy with white matter changes. CT was performed with one or more following dose reduction techniques: automated exposure control, adjustment of the mA and kv according to patient's size, or use of a iterative reconstruction technique.
--- NOTE | 2024-09-23 15:13 | HMCIMG ---
CT CERVICAL SPINE W/O CONTRAST HISTORY: Trauma COMPARISON: None TECHNIQUE: Multiple sequential axial images of the cervical spine were obtained including post processing sagittal and coronal reconstruction images. Patient was not given contrast through intravenous route. FINDINGS: There is straightening of normal lordotic cervical curvature which may be related to muscle spasm or positioning. There is no loss of vertebral height. Evaluation for disc and cord pathology is limited with CT study. No evidence of fracture or dislocation is seen. There are degenerative changes with cervical spine spondylosis. Disc space narrowing are seen at C5-6 and C6-7 levels. IMPRESSION: 1. No fracture is seen. DJD with cervical spine spondylosis. CT was performed with one or more following dose reduction techniques: automated exposure control, adjustment of the mA and kv according to patient's size, or use of a iterative reconstruction technique.
--- NOTE | 2024-09-23 15:15 | HMCIMG ---
CT MAXILLOFACIAL W/O CONTRAST HISTORY: Trauma COMPARISON: None TECHNIQUE: Multiple sequential high-resolution axial images of the paranasal sinuses were obtained. Postprocessing sagittal and coronal reconstruction images were also obtained. Patient was not given contrast through intravenous route. FINDINGS: Nasal septum is deviated towards right. There is mild mucoperiosteal thickening involving the bilateral ethmoid and maxillary sinuses. The infundibula are patent bilaterally. No acute displaced fracture is seen. There is no evidence of air-fluid level in the paranasal sinuses. Parapharyngeal fat planes are preserved bilaterally. There is left periorbital soft tissue swelling. IMPRESSION: 1. No acute displaced fracture is seen. Left periorbital soft tissue swelling. CT was performed with one or more following dose reduction techniques: automated exposure control, adjustment of the mA and kv according to patient's size, or use of a iterative reconstruction technique.
--- NOTE | 2024-09-23 15:40 | ERN ---
General Chief Complaint: Other Problems Stated Complaint: MECHNICAL FALL History of Present Illness Initial Comments 69-year-old male presents from home for face injury and a fall. Patient reports she had a mechanical trip and fall either yesterday or the day before. He does take Xarelto. He has a medical history of diabetes high cholesterol heart disease and hypertension. He reports he had his head. He was some bruising to the left side of the face and a black eye on the left. He denies loss of consciousness. No confusion. No vomiting. Denies any other injuries. Allergies: Coded Allergies: Penicillins (Unverified Allergy, Intermediate, HIVES, 07/31/18) Home Meds Active Scripts Ibuprofen (Ibuprofen 800 mg Tab) 800 Mg Tab, 800 MG PO Q8H PRN for fever or pain, #30 TAB 0 Refills Prov:JACQUES HARRISON NP 05/16/24 Cyclobenzaprine HCl (Cyclobenzaprine HCl) 10 Mg Tablet, 1 TAB PO TID for muscle spasms for 10 Days, #30 TAB 0 Refills Prov:JACQUES HARRISON NP 05/16/24 Cyclobenzaprine HCl (Cyclobenzaprine HCl) 5 Mg Tablet, 5 MG PO q8hprn PRN for pain/spasm for 30 Days, #90 TAB 0 Refills Prov:SIMRAN CONNORS MD 04/16/22 Docusate Sodium (Colace) 100 Mg Capsule, 100 MG PO BID for 30 Days, #60 CAP 0 Refills Prov:SIMRAN CONNORS MD 04/16/22 Gabapentin (Gabapentin) 100 Mg Capsule, 100 MG PO TID for 30 Days, #90 CAP 0 Refills Prov:SIMRAN CONNORS MD 04/16/22 Hydrocodone/Acetaminophen (Hydrocodon-Acetaminophen 5-325) 1 Each Tablet, 1-2 EACH PO Q4HPRN PRN for PAIN for 7 Days, #56 TAB 0 Refills Prov:SIMRAN CONNORS MD 04/16/22 Reported Medications Loratadine (Loratadine) 10 Mg Tablet, 10 MG PO HS, TAB 02/22/22 Multivits-Min/FA/Lycopene/Lut (Centrum Silver Tablet) 1 Each Tablet, 1 EACH PO DAILY, TAB 02/22/22 Atorvastatin Calcium (LIPITOR) 40 Mg Tablet, 40 MG PO HS, TAB 02/22/22 [Vitamin D3] No Conflict Check, 1000 UNITS PO BID 02/22/22 Verapamil HCl (Verapamil ER) 180 Mg Tablet.er, 180 MG PO DAILY, TAB 02/22/22 Levothyroxine Sodium (Levothyroxine) 125 Mcg Capsule, 125 MCG PO ACBKFST, CAP 02/22/22 [place]-3S/Dha/Epa/Fish Oil (Fish Oil 1,000 mg Softgel) 1 Each Capsule, 1 EACH PO BID, CAP 02/22/22 Potassium Chloride (Potassium Chloride) 20 Meq Tablet.er, 20 MEQ PO BID, TAB 12/15/19 Metformin HCl (Metformin HCl) 500 Mg Tablet, 250 MG PO DAILY, TAB 07/31/18 Furosemide (Lasix 20Mg Tab) 20 Mg Tablet, 20 TAB PO DAILY, TAB 07/31/18 Hydrochlorothiazide (Hydrochlorothiazide) 25 Mg Tablet, 25 MG PO DAILY, TAB 07/31/18 Metoprolol Tartrate (Metoprolol Tartrate) 100 Mg Tablet, 150 MG PO BID, TAB 07/31/18 Rivaroxaban (Xarelto) 20 Mg Tablet, 20 MG PO DAILY, TAB 07/31/18 Past Medical History Past Medical History: Diabetes-Type II, High Cholesterol, Heart Disease, Hypertension Medical History Other: ON BLOOD THINNERS Past Surgical History: Pacer/AICD, Other Surgical History Other: BILATERAL HIP REPLACEMENT ROS Dictation CONSTITUTIONAL: No chills, no fever, no weakness, no diaphoresis, no malaise. HEAD/FACE: Left-sided face pain EENT: No eye pain, no blurred vision, no tearing, no double vision, no ear pain, no ear discharge, no nose pain, no nasal congestion, no throat pain, no throat swelling, no mouth pain. RESPIRATORY: No cough, no orthopnea, no SOB, no stridor, no wheezing. CARDIOVASCULAR: No chest pain, no edema, no palpitations, no syncope. GASTROINTESTINAL/ABDOMINAL: No abdominal pain, no constipation, no diarrhea, no nausea, no vomiting. GENITOURINARY: No abnormal discharge, no dysuria, no frequent urination, no hematuria. No complaints of pain in the genitals. MUSCULOSKELETAL: No back pain, no gout, no joint pain, no joint swelling, no muscle pain, no muscle stiffness, no neck pain. INTEGUMENTARY: No change in color, no change in hair/nails, no dryness, no lesion, no lumps, no rash. NEUROLOGICAL/PSYCH: No anxiety, not depressed, no emotional problem, no headac he, no numbness, no pre-existing deficit, no history of seizures, no tremors, no weakness. HEMATOLOGIC/LYMPHATIC: Not anemic, no history of blood clots, no apparent bleeding, no bruising, glands not swollen. All Systems Negative, Except as Noted. Physical Exam Physical Exam Dictation VITAL SIGNS: Reviewed. GENERAL APPEARANCE: Alert, oriented x3, no acute distress, obese. HEAD AND FACE: Left face block any EYES: PERRL, pink conjunctivas, eyelid no trauma, anterior chamber clear. EARS: Pinnas intact and no signs of trauma or erythema. Ear canals clear and no discharge. TMs no erythema. NOSE: No discharge, no bleeding. OROPHARYNX: Mouth normal, teeth no caries, tongue pink. Pharynx clear, no erythema. Tonsils no exudates, no abscesses noted. Mucous membrane moist. NECK: Supple, non-tender, no thyromegaly, no masses, no JVD, no bruits. BREAST: Deferred. CHEST: No tenderness, no crepitus, no paradoxical movement, no retractions. LUNGS: Clear, well-ventilated, symmetric, no rales, no wheezing, no rhonchi, no stridor, good breath sounds bilaterally. HEART: Regular rate, regular rhythm, no murmur, no gallops. VASCULAR: No peripheral edema. ABDOMEN: Soft, positive bowel sounds, nondistended, no guarding, nontender, no rebound, no masses no hepatomegaly, no splenomegaly, no Hurtado's sign, no hernias. RECTAL: Deferred. GENITAL: Deferred. NEUROLOGICAL: Normal speech, gross motor function intact, gross sensory function intact. MUSCULOSKELETAL: Neck nontender, full range of motion, back nontender, full range of motion. EXTREMITIES: Nontender, full range of motion. SKIN: Color pink, dry, no turgor, no rash, no lacerations, no abrasions, no contusions. LYMPHATICS: Deferred. MDM CC: Left eye in the black status post fall Historian: Patient Comorbidities: Advanced age Limitations by social determinants of health: None Differential diagnosis: Fracture versus brain bleed beers hematoma versus other. Vital signs stable CT scan of the head, maxillofacial, and cervical spine without contrast ( independently interpreted by me ): No acute fractures, bleeding, or bony abnormalities. No signs of globe rupture. There is some swelling to the left eye consistent with a hematoma. No treatment in the ER acquired I was unable to completely evaluate the I do this significant swelling. There is no signs of globe rupture on the CT scan. Very low suspicion for any major abnormalities. I did recommend that the patient returns to emergency department follows up with the PCP once the swelling goes down for eye evaluation. We will recommend ice to the face and PCP follow up as needed. ED Course Orders Procedure Category Date Status Time Ct Head/Brain W/O CT 09/23/24 Resulted Contrast 14:17 Ct Cervical Spine W/O CT 09/23/24 Resulted Contrast 14:17 Ct Maxillofacial W/O CT 09/23/24 Resulted Contrast 14:17 Vital Signs Date Time Temp Pulse Resp B/P (MAP) Pulse Ox O2 Delivery O2 Flow Rate FiO2 09/23/24 15:00 98.1 90 18 131/70 97 Room Air* 0 21 09/23/24 14:30 98.1 107 16 165/86 98 Room Air* 0 21 09/23/24 14:17 98.8 85 16 131/84 98 Room Air DX & DISP Disposition: Discharge Departure Impression: Primary Impression: Black eye, left Condition: Stable Additional Instructions: There are no bony abnormalities or major abnormalities on the CT scan Of your head, face, and cervical spine. Your symptoms are consistent with a hematoma, or black eye. I recommend that you apply ice for 15 minutes two or 3 times per day for the next few days. This will reduce inflammation and pain. You can take an [id number] NSAID, such as ibuprofen or naproxen, as needed for pain. Please follow up with the primary doctor if you have any concerns. Return to the emergency department as needed. Referrals: DAR HAMMER MD (PCP) INGA PHAM DO Sep 23, 2024 15:40
[2024-09-23 16:00] VITALS: BP 134/72; PULSE 94; RESP 18; TEMP 98; O2SAT 97
== END 2024-09-23 16:14 | disposition home or self-care (01) ==
LOC: EDH 14:11
DX: S00.12XA Contusion of left eyelid and periocular area, initial encounter (principal); E11.9 Type 2 diabetes mellitus without complications; E78.00 Pure hypercholesterolemia, unspecified; I10 Essential (primary) hypertension; Z79.01 Long term (current) use of anticoagulants; Z79.84 Long term (current) use of oral hypoglycemic drugs; Z79.899 Other long term (current) drug therapy; Z88.0 Allergy status to penicillin; Z95.810 Presence of automatic (implantable) cardiac defibrillator; Z96.643 Presence of artificial hip joint, bilateral; W01.0XXA Fall on same level from slipping, tripping and stumbling without subsequent striking against object, initial encounter; Y93.89 Activity, other specified; Y92.89 Other specified places as the place of occurrence of the external cause; Y99.8 Other external cause status
CPT/HCPCS: 70450; 70486; 72125; 99284

== ENCOUNTER → 2024-10-18 | Outpatient (CLI) | payer OTHER ==
[2024-10-18] MEDS: REGADENOSON 0.4 MG/5 ML PF SYG IVP ONE (10:36)
--- NOTE | 2024-10-19 12:20 | HMCSR ---
APPROVED REPORT Height: 5 ft 8in Weight: 278 lbs TEST INDICATIONS Chest Pain The imaging protocol used to acquire images was Rest Tc-99m/stress Tc-99m 1 day Consent: The procedure was explained and understood by the patient. Informerd consent was witnessed Hermelindo Mar RN First, low dose rest was performed then high dose stress. RESTING DATA: The resting ekg shows: Atrial Fibrillation, PVC's Rest SPECT myocardial perfusion imaging was performed in supine position 65 minutes following the int ravenous injection of 11.2 mCi of Tc-99 Sestamibi. Time of rest injection: 08:07: Date: 10/18/2024 Time of rest imagin:12: Date: 10/18/2024 PHARMACOLOGIC STRESS: Pharmacologic stress test was performed by injecting regadenoson 0.4 mg IV push followed by the intra venous injection of 34.0 mCi of Tc-99 Sestamibi. Time of stress injection: 09:48: Date: 10/18/2024 Time of stress imagin:01: Date: 10/18/2024 Heart Rate at time of stress injection: 65 bpm. Gated Stress SPECT was performed 73 minutes after stress injection. The images were gated to evaluate regional wall motion and calculate left ventricular ejection fracti on. STRESS DETAILS Reason for Termination: Infusion complete Stress Symptoms: Dyspnea Max HR Achieved: 86 bpm % of APMHR Achieved: 57 Max Blood Pressure: 143/70 mmHg Stress ECG: Atrial Fibrillation, PVC's Study quality was fair. Lung uptake was Normal. Artifact: No artifact LEFT VENTRICLE The left ventricular ejection fraction was calculated to be 51%.TID = 0.86. IMPRESSION Abnormal pharmacologic nuclear stress test. Conclusion Abnormal [id number] stress test with an LVEF of 51% with a TID of 0.86 There is a medium sized, moderate severity inferolateral and apical perfusion defect suggestive of is chemia.
== END | disposition home or self-care (01) ==
LOC: SHCH 07:40
PROVIDERS: ATTEND Internal Medicine Cardiovascular Disease
DX: I48.91 Unspecified atrial fibrillation (principal); R07.9 Chest pain, unspecified; R06.00 Dyspnea, unspecified
CPT/HCPCS: 78452; 93017; J2785; A9500 ×2

== ENCOUNTER 2024-11-24 15:06 | Emergency (ER) | payer OTHER, MEDICARE ==
[~2024-11-24] VITALS: Ht 177.8 cm; Wt 128.8 kg
[~2024-11-24 15:06] MED LIST changes: -LEVO125C4 PO; +LEVO125C5 PO
--- NOTE | 2024-11-24 15:34 | ERN ---
General Chief Complaint: Abdominal Pain Stated Complaint: DIRECT ADMIT Time Seen by MD: 15:07 History of Present Illness Initial Comments 69-year-old male sent from the [place] for right upper quadrant pain. Patient reports for five days of right upper quadrant pain. It increases with movement deep respiration rate. Nausea without vomiting. No fevers. P.o. tolerant. No urinary changes. No diarrheas. Patient was sent for possible cholecystitis. Allergies: Coded Allergies: Penicillins (Unverified Allergy, Intermediate, HIVES, 07/31/18) Home Meds Active Scripts Ibuprofen (Ibuprofen 800 mg Tab) 800 Mg Tab, 800 MG PO Q8H PRN for fever or pain, #30 TAB 0 Refills Prov:JACQUES HARRISON NP 05/16/24 Cyclobenzaprine HCl (Cyclobenzaprine HCl) 10 Mg Tablet, 1 TAB PO TID for muscle spasms for 10 Days, #30 TAB 0 Refills Prov:JACQUES HARRISON DRY HOUSE OPERATOR 05/16/24 Cyclobenzaprine HCl (Cyclobenzaprine HCl) 5 Mg Tablet, 5 MG PO q8hprn PRN for pain/spasm for 30 Days, #90 TAB 0 Refills Prov:SIMRAN CONNORS MD 04/16/22 Docusate Sodium (Colace) 100 Mg Capsule, 100 MG PO BID for 30 Days, #60 CAP 0 Refills Prov:SIMRAN CONNORS MD 04/16/22 Gabapentin (Gabapentin) 100 Mg Capsule, 100 MG PO TID for 30 Days, #90 CAP 0 Refills Prov:SIMRAN CONNORS MD 04/16/22 Hydrocodone/Acetaminophen (Hydrocodon-Acetaminophen 5-325) 1 Each Tablet, 1-2 EACH PO Q4HPRN PRN for PAIN for 7 Days, #56 TAB 0 Refills Prov:SIMRAN CONNORS MD 04/16/22 Reported Medications Loratadine (Loratadine) 10 Mg Tablet, 10 MG PO HS, TAB 02/22/22 Multivits-Min/FA/Lycopene/Lut (Centrum Silver Tablet) 1 Each Tablet, 1 EACH PO DAILY, TAB 02/22/22 Atorvastatin Calcium (LIPITOR) 40 Mg Tablet, 40 MG PO HS, TAB 02/22/22 [Vitamin D3] No Conflict Check, 1000 UNITS PO BID 02/22/22 Verapamil HCl (Verapamil ER) 180 Mg Tablet.er, 180 MG PO DAILY, TAB 02/22/22 Levothyroxine Sodium (Levothyroxine) 125 Mcg Capsule, 125 MCG PO ACBKFST, CAP 02/22/22 [place]-3S/Dha/Epa/Fish Oil (Fish Oil 1,000 mg Softgel) 1 Each Capsule, 1 EACH PO BID, CAP 02/22/22 Potassium Chloride (Potassium Chloride) 20 Meq Tablet.er, 20 MEQ PO BID, TAB 12/15/19 Metformin HCl (Metformin HCl) 500 Mg Tablet, 250 MG PO DAILY, TAB 07/31/18 Furosemide (Lasix 20Mg Tab) 20 Mg Tablet, 20 TAB PO DAILY, TAB 07/31/18 Hydrochlorothiazide (Hydrochlorothiazide) 25 Mg Tablet, 25 MG PO DAILY, TAB 07/31/18 Metoprolol Tartrate (Metoprolol Tartrate) 100 Mg Tablet, 150 MG PO BID, TAB 07/31/18 Rivaroxaban (Xarelto) 20 Mg Tablet, 20 MG PO DAILY, TAB 07/31/18 Past Medical History Past Medical History: Diabetes-Type II, High Cholesterol, Heart Disease, Hypertension Medical History Other: ON BLOOD THINNERS Past Surgical History: Pacer/AICD, Other Surgical History Other: BILATERAL HIP REPLACEMENT ROS Dictation CONSTITUTIONAL: No chills, no fever, no weakness, no diaphoresis, no malaise. HEAD/FACE: No signs of trauma. EENT: No eye pain, no blurred vision, no tearing, no double vision, no ear pain, no ear discharge, no nose pain, no nasal congestion, no throat pain, no throat swelling, no mouth pain. RESPIRATORY: No cough, no orthopnea, no SOB, no stridor, no wheezing. CARDIOVASCULAR: No chest pain, no edema, no palpitations, no syncope. GASTROINTESTINAL/ABDOMINAL: Right upper quadrant pain GENITOURINARY: No abnormal discharge, no dysuria, no frequent urination, no hematuria. No complaints of pain in the genitals. MUSCULOSKELETAL: No back pain, no gout, no joint pain, no joint swelling, no muscle pain, no muscle stiffness, no neck pain. INTEGUMENTARY: No change in color, no change in hair/nails, no dryness, no lesion, no lumps, no rash. NEUROLOGICAL/PSYCH: No anxiety, not depressed, no emotional problem, no headache, no numbness, no pre-existing deficit, no history of seizures, no tremors, no weakness. HEMATOLOGIC/LYMPHATIC: Not anemic, no history of blood clots, no apparent bleeding, no bruising, glands not swollen. All Systems Negative, Except as Noted. Physical Exam Physical Exam Dictation VITAL SIGNS: Reviewed. GENERAL APPEARANCE: Alert, oriented x3, no acute distress, obese. HEAD AND FACE: Non-traumatic. EYES: PERRL, pink conjunctivas, eyelid no trauma, anterior chamber clear. EARS: Pinnas intact and no signs of trauma or erythema. Ear canals clear and no discharge. TMs no erythema. NOSE: No discharge, no bleeding. OROPHARYNX: Mouth normal, teeth no caries, tongue pink. Pharynx clear, no erythema. Tonsils no exudates, no abscesses noted. Mucous membrane moist. NECK: Supple, non-tender, no thyromegaly, no masses, no JVD, no bruits. BREAST: Deferred. CHEST: No tenderness, no crepitus, no paradoxical movement, no retractions. LUNGS: Clear, well-ventilated, symmetric, no rales, no wheezing, no rhonchi, no stridor, good breath sounds bilaterally. HEART: Regular rate, regular rhythm, no murmur, no gallops. VASCULAR: No peripheral edema. ABDOMEN: Soft, positive bowel sounds, nondistended, no guarding, nontender, no rebound, no masses no hepatomegaly, no splenomegaly, no Hurtado's sign, no hernias. RECTAL: Deferred. GENITAL: Deferred. NEUROLOGICAL: Normal speech, gross motor function intact, gross sensory function intact. MUSCULOSKELETAL: Neck nontender, full range of motion, back nontender, full range of motion. EXTREMITIES: Nontender, full range of motion. SKIN: Color pink, dry, no turgor, no rash, no lacerations, no abrasions, no contusions. LYMPHATICS: Deferred. Results Laboratory and Microbiology Lab and Micro Result Laboratory Tests Test 11/24/24 17:35 11/24/24 17:50 White Blood Count 6.5 K/uL (4.8-10.8) Red Blood Count 3.97 MIL/uL (4.50-6.20) L Hemoglobin 12.7 g/dL (14.0-18.0) L Hematocrit 38.0 % (42-54) L Mean Corpuscular Volume 95.7 fL (79-99) Mean Corpuscular Hemoglobin 32.0 pg (27.0-33.0) Mean Corpuscular Hemoglobin Concent 33.4 g/dL (32.0-36.0) Red Cell Distribution Width 13.5 % (11.0-15.5) Platelet Count 165 K/uL (130-400) Mean Platelet Volume 10.5 fL (7.5-10.5) Immature Granulocyte % (Auto) 0.2 % (0-1) Neutrophils (%) (Auto) 61.6 % (40.0-77.0) Lymphocytes (%) (Auto) 24.3 % (21.0-51.0) Monocytes (%) (Auto) 11.9 % (3.0-13.0) Eosinophils (%) (Auto) 1.4 % (0.0-8.0) Basophils (%) (Auto) 0.6 % (0.0-5.0) Neutrophils # (Auto) 4.0 K/uL (1.8-7.7) Lymphocytes # (Auto) 1.6 K/uL (1.0-4.8) Monocytes # (Auto) 0.8 K/uL (0.1-1.0) Eosinophils # (Auto) 0.09 K/uL (0.00-0.70) Basophils # (Auto) 0.04 K/uL (0.00-0.20) Absolute Immature Granulocyte (auto 0.01 K/uL (0-1) Nucleated Red Blood Cells 0.0 % (0.0-0.19) Sodium Level 140 mmol/L (136-145) Potassium Level 4.1 mmol/L (3.5-5.1) Chloride Level 101 mmol/L (101-111) Carbon Dioxide Level 28 mmol/L (21-32) Blood Urea Nitrogen 11 mg/dL (7-18) Creatinine 0.7 mg/dL (0.5-1.3) Glomerular Filtration Rate Calc 99 mL/min (>90) Random Glucose 82 mg/dL (70-105) Lactic Acid Level 2.2 mmol/L (0.8-2.5) Total Calcium 9.4 mg/dL (8.5-10.1) Total Bilirubin 1.0 mg/dL (0.2-1.0) Direct Bilirubin 0.3 mg/dL (0.0-0.3) Aspartate Amino Transf (AST/SGOT) 39 U/L (10-37) H Alanine Aminotransferase (ALT/SGPT) 40 U/L (12-78) Alkaline Phosphatase 94 U/L (50-136) Total Creatine Kinase 54 U/L (21-232) Troponin I High Sensitivity 8 ng/L (4-75) Total Protein 8.8 g/dL (6.0-8.3) H Albumin 4.0 g/dL (3.5-5.0) Lipase 71 U/L (16-77) Urine Color YELLOW (YELLOW) Urine Appearance CLEAR (CLEAR) Urine pH 6.5 (5.0-8.0) Urine Specific [place] 1.019 (1.001-1.031) Urine Protein NEGATIVE mg/dL (NEGATIVE) Urine Glucose (UA) NEGATIVE mg/dL (NEGATIVE) Urine Ketones 5 mg/dL (NEGATIVE) H Urine Occult Blood NEGATIVE (NEGATIVE) Urine Nitrate NEGATIVE (NEGATIVE) Urine Bilirubin NEGATIVE mg/dL (NEGATIVE) Urine Urobilinogen 0.2 mg/dL (0.2-1.0) Urine Leukocyte Esterase NEGATIVE Kashif/uL Urine RBC 0-1 /HPF (0-1) Urine WBC 0-1 /HPF (0-1) Urine Squamous Epithelial Cells RARE /HPF (0-2) Urine Bacteria None /HPF (None Seen) Urine Hyaline Casts 2-5 /LPF (0-1 /LPF) H MDM Patient was handed off by Dr. [place]. Patient comes in with a right costal margin pain. Patient was told to come to be evaluated in the emergency department. CT abdomen and pelvis for his right upper quadrant pain just shows a chronic periumbilical hernia with fat content and bilateral simple renal cysts. Patient has no evidence of acute process. Patient would like to leave and follow up with his primary care doctor. Advised patient to come back if there is any worsening abdominal conditions, pain, fever ED Course Orders Procedure Category Date Status Time Cbc With Differential LAB 11/24/24 Complete 15:07 Troponin I High LAB 11/24/24 Complete Sensitivity 15:07 Urinalysis Profile LAB 11/24/24 Complete 15:07 Ct Abdomen/Pelvis CT 11/24/24 Resulted W/Contrast 15:07 Us Abdominal Ruq\Ltd US 11/24/24 Resulted 15:07 Creatine Kinase, Total LAB 11/24/24 Complete 15:07 Lipase LAB 11/24/24 Complete 15:07 Basic Metabolic Panel LAB 11/24/24 Complete 15:07 Lactic Acid LAB 11/24/24 Complete 15:07 Hepatic Function Panel LAB 11/24/24 Complete 15:07 Blood Cult MIKAELA 11/24/24 In Process 15:07 Chest 1vw RAD 11/24/24 Resulted 15:34 Lidocaine (Lidocaine PHA 11/24/24 Complete Patch 4%) 18:00 Ketorolac PHA 11/24/24 Complete Tromethamine 15mg/Ml 18:00 Iohexol (Omnipaque) PHA 11/24/24 Complete 19:32 Current Medications Medications (Trade) Dose Ordered Sig/Magalie Route PRN Reason Start Time Stop Time Status Last Admin Dose Admin Iohexol (Omnipaque) 35,000 mg STK-MED ONCE IV 11/24/24 19:32 11/24/24 19:34 DC Ketorolac Tromethamine (toRADol) 15 mg ONCE ONCE IV 11/24/24 18:00 11/24/24 18:01 DC 11/24/24 18:42 Lidocaine (Lidocaine Patch 4%) 1 each ONCE ONCE TP 11/24/24 18:00 11/24/24 18:01 DC 11/24/24 18:43 Vital Signs Date Time Temp Pulse Resp B/P (MAP) Pulse Ox O2 Delivery O2 Flow Rate FiO2 11/24/24 21:12 98.2 88 16 138/74 98 Room Air* 0 21 11/24/24 17:44 98.2 92 16 153/89 98 Room Air* 0 21 11/24/24 15:32 98.2 92 16 153/89 98 0 DX & DISP Disposition: Discharge Departure Impression: Primary Impression: Costal margin pain Condition: Stable Additional Instructions: Please follow up with your primary care physician in the next 3-4 days. If you have worsening of abdominal pain or flank pain please come back to emergency department immediately. If you have worsening fever chills lightheadedness dizziness nausea or vomiting please also consider returning to the emergency department Referrals: DAR HAMMER MD (PCP) INGA PHAM DO Nov 24, 2024 15:34 DELL OLGUIN MD Nov 24, 2024 21:09
--- NOTE | 2024-11-24 16:39 | HMCIMG ---
US ABDOMINAL RUQ\E\LTD HISTORY: Abdominal pain COMPARISON: None TECHNIQUE: Right upper quadrant abdominal ultrasound study was performed. FINDINGS: Liver measures 15 cm. Portal vein is patent. The visualized portion of the pancreas is within normal limits. Liver is echogenic consistent with liver parenchymal disease. No gallstone is seen. Common duct measures 3 mm. No evidence of gallbladder wall thickening is seen. Right kidney measures 13.7 x 6.8 x 6.1 cm. No hydronephrosis is seen of the right kidney. There is right upper pole simple renal cyst measuring 4.6 x 4.1 x 2.9 cm. The study is limited due to overlying bowel gas and patient's large body habitus. IMPRESSION: 1. No gallstones or ductal dilatation is seen. 2. No hydronephrosis is seen. There is a simple right renal cyst.
--- NOTE | 2024-11-24 17:00 | HMCIMG ---
CHEST 1VW HISTORY: Pain COMPARISON: 06/11/2023 FINDINGS: A frontal projection of the chest was obtained. No acute pulmonary infiltrates is seen. The heart is borderline enlarged. Pacemaker is seen entering from the left. Degenerative changes are seen. No evidence of aortic calcification is seen. IMPRESSION: 1. No acute pulmonary infiltrate is seen.
[2024-11-24 17:44] LABS: BASOPHILS # (AUTO) 0.04 K/uL (0.00-0.20); BASOPHILS % (AUTO) 0.6 % (0.0-5.0); EOSINOPHILS # (AUTO) 0.09 K/uL (0.00-0.70); EOSINOPHILS % (AUTO) 1.4 % (0.0-8.0); IMMATURE GRANULOCYTE ABSOLUTE 0.01 K/uL (0-1); LYMPHOCYTES # (AUTO) 1.6 K/uL (1.0-4.8); LYMPHOCYTES % (AUTO) 24.3 % (21.0-51.0); MEAN CORPUSCULAR HGB CONC 33.4 g/dL (32.0-36.0); MEAN CORPUSCULAR VOLUME 95.7 fL (79-99); MONOCYTES # (AUTO) 0.8 K/uL (0.1-1.0); MONOCYTES % (AUTO) 11.9 % (3.0-13.0); NEUTROPHILS % (AUTO) 61.6 % (40.0-77.0); PLATELET COUNT (AUTO) 165 K/uL (130-400); RED BLOOD CELL COUNT(AUTO) 3.97 MIL/uL (4.50-6.20); RED CELL DISTRIBUTION WIDTH 13.5 % (11.0-15.5); WHITE BLOOD COUNT (AUTO) 6.5 K/uL (4.8-10.8)
--- NOTE | 2024-11-24 17:50 | NUR ---
LAC-2.2 ERMD MADE AWARE
[2024-11-24 17:56] LABS: CREATININE 0.7 mg/dL (0.5-1.3); POTASSIUM 4.1 mmol/L (3.5-5.1)
[2024-11-24 18:01] LABS: ADD UA MICROSCOPIC YES; APPEARANCE,URINE CLEAR (CLEAR); BILIRUBIN,URINE NEGATIVE (NEGATIVE); COLOR,URINE YELLOW (YELLOW); GLUCOSE, URINE (UA) NEGATIVE (NEGATIVE); KETONES,URINE 5 mg/dL (NEGATIVE); LEUKOCYTE ESTERASE ,URINE NEGATIVE Leu/uL (NEGATIVE); NITRATE,URINE NEGATIVE (NEGATIVE); OCCULT BLOOD,URINE NEGATIVE (NEGATIVE); PH,URINE 6.5 (5.0-8.0); PROTEIN,URINE NEGATIVE (NEGATIVE); UROBILINOGEN,URINE 0.2 mg/dL (0.2-1.0)
[2024-11-24 18:02] LABS: MUCUS,URINE RARE LPF (None Seen); RBC,URINE 0-1 /HPF (0-1); SQUAMOUS EPITHELIAL CELL,UR RARE /HPF (0-2); WBC,URINE 0-1 /HPF (0-1)
[2024-11-24 18:08] LABS: BILIRUBIN,DIRECT 0.3 mg/dL (0.0-0.3); TOTAL PROTEIN, SERUM 8.8 g/dL (6.0-8.3)
[2024-11-24] MEDS: ketOROlac 15MG/ML VIAL (15MG/ML) IV ONE (18:42)
[2024-11-24] MEDS: LIDOCAINE 4% ADH..PATCH TP ONE (18:43)
[2024-11-24] MEDS ORDERED: IOHEXOL 350 MG/ML 100ML INFUS..BTL IV ONE (19:32)
--- NOTE | 2024-11-24 20:43 | HMCIMG ---
CT ABDOMEN/PELVIS W/CONTRAST HISTORY: Right upper quadrant pain COMPARISON: None TECHNIQUE: Multiple sequential axial images of the abdomen and pelvis were obtained from the dome of the diaphragm through symphysis pubis. Patient was given 100 cc of through intravenous route. Oral contrast was not given. FINDINGS: No pleural effusion is seen bilaterally. There is no evidence of parenchymal disease or pulmonary nodule of the visualized lower lungs. Degenerative changes of the thoracolumbar spine are present. The heart is not enlarged. Coronary artery calcifications are seen. Gallbladder is moderately contracted with gallbladder wall thickening. There is a periumbilical hernia with fat content. The liver, spleen, adrenal glands and pancreas are unremarkable. There is no evidence of hydronephrosis bilaterally. There is right renal cyst measuring 4.1 cm. There is left renal cyst measuring 2 cm. No evidence of renal stone is seen. Fecal material is seen in the colon. There are normal size retroperitoneal and mesenteric lymph nodes. No ascites is seen. Atherosclerotic changes are present. Pelvic sidewalls are symmetric bilaterally. There are bilateral hip prosthesis causing artifact limiting evaluation of the pelvis. Bladder is poorly distended. IMPRESSION: 1. Periumbilical hernia with fat content. Bilateral simple renal cysts. Atherosclerosis. Diverticulosis. CT was performed with one or more following dose reduction techniques: automated exposure control, adjustment of the mA and kv according to patient's size, or use of a iterative reconstruction technique.
[2024-11-24 21:12] VITALS: BP 138/74; PULSE 88; RESP 16; TEMP 98.2; O2SAT 98
== END 2024-11-24 21:15 | disposition home or self-care (01) ==
LOC: EDH 15:06
DX: R07.1 Chest pain on breathing (principal); E11.9 Type 2 diabetes mellitus without complications; E78.00 Pure hypercholesterolemia, unspecified; I11.9 Hypertensive heart disease without heart failure; Z79.01 Long term (current) use of anticoagulants; Z79.84 Long term (current) use of oral hypoglycemic drugs; Z79.899 Other long term (current) drug therapy; Z88.0 Allergy status to penicillin; Z95.810 Presence of automatic (implantable) cardiac defibrillator; Z96.643 Presence of artificial hip joint, bilateral
CPT/HCPCS: 99285; 74177; 96374; 76705; 71045; 82550; 80076; 84484; 80048; 83690; 85025; 87040 ×2; 83605; 81001; 36415; J1885; Q9967

== ENCOUNTER 2025-07-19 09:29 | Emergency (ER) | payer OTHER, MEDICARE ==
[~2025-07-19] VITALS: Ht 177.8 cm; Wt 129.3 kg
[2025-07-19 09:30] VITALS: TEMP 97.9
--- NOTE | 2025-07-19 09:37 | NUR ---
PT JUST NOW PLACED IN MY ED BED 9
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
--- NOTE | 2025-07-19 11:00 | NUR ---
PT TO CT SCAN
--- NOTE | 2025-07-19 11:16 | NUR ---
JUST RETURNED FROM CT SCAN
--- NOTE | 2025-07-19 11:24 | HMCIMG ---
EXAM: CT Head Without IV contrast. CLINICAL HISTORY: Head injury TECHNIQUE: Axial computed tomography images of the head/brain without intravenous contrast. COMPARISON: 09/23/2024. FINDINGS: BRAIN: No acute bleed or infarct. Stable chronic ischemic and atrophic changes. VENTRICLES: No hydrocephalus. ORBITS: The orbits are unremarkable. SINUSES AND MASTOIDS: The paranasal sinuses and mastoid air cells are clear. BONES: No fracture. SOFT TISSUES: Soft tissue swelling overlying the forehead right eye. IMPRESSION: 1. No acute bleed or infarct. Stable chronic ischemic and atrophic changes. 2. Soft tissue swelling overlying the forehead right eye. /Davey
[2025-07-19 11:55] VITALS: BP 117/62; PULSE 60; RESP 17; O2SAT 97
== END 2025-07-19 11:55 | disposition home or self-care (01) ==
LOC: EDH 09:29
DX: S00.03XA Contusion of scalp, initial encounter (principal); H57.11 Ocular pain, right eye; E11.9 Type 2 diabetes mellitus without complications; I11.9 Hypertensive heart disease without heart failure; E78.00 Pure hypercholesterolemia, unspecified; Z88.0 Allergy status to penicillin; Z79.84 Long term (current) use of oral hypoglycemic drugs; Z79.01 Long term (current) use of anticoagulants; Z79.899 Other long term (current) drug therapy; Z95.810 Presence of automatic (implantable) cardiac defibrillator; Z96.643 Presence of artificial hip joint, bilateral; W22.8XXA Striking against or struck by other objects, initial encounter; Y93.89 Activity, other specified; Y92.89 Other specified places as the place of occurrence of the external cause; Y99.8 Other external cause status
CPT/HCPCS: 70450; 99284